=== PATIENT | male | born 1975 | race African-American/Black ===

== ENCOUNTER 2018-09-07 10:42 | Inpatient (IN) | payer BC, OTHER ==
[2018-09-07 11:14] VITALS: BMI 18.6
--- NOTE | 2018-09-07 12:27 | HP ---
CIWA Score - Admission Criteria [facility] Guidelines: Admission for Medically Managed Detox: Requires at least one of the followin. CIWA greater than 12 2. Seizures within the past 24 hours 3. Delirium tremens within the past 24 hours 4. Hallucinations within the past 24 hours 5. Acute intervention needed for co occurring medical disorder 6. Acute intervention needed for co occurring psychiatric disorder 7. Severe withdrawal that cannot be handled at a lower level of care (continued vomiting, continued diarrhea, abnormal vital signs) requiring intravenous medication and/or fluids 8. Admission ROS [facility] - [facility] Chief Complaint: REHAB SERVICES Allergies/Adverse Reactions: Allergies Allergy/AdvReac Type Severity Reaction Status Date / Time No Known Allergies Allergy Verified 09/07/18 12:56 History of Present Illness: 43 Y.O. MAN WITH AN EXTENSIVE ALCOHOL AND MARIJUANA DEPENDENCE IS SEEKING REHAB SERVICES. HE REPORTS HE LAST COMPLETED DETOX IN 2011 IN [facility]. Exam Limitations: Other (HARD OF HEARING) - Ebola screening Have you traveled outside of the country in the last 21 days: No Have you had contact with anyone from an Ebola affected area: No Have you been sick,other than usual withdrawal symptoms: No Do you have a fever: No - Review of Systems Constitutional: Night Sweats, Unintentional Wgt. Loss EENT: reports: Blurred Vision, Other (HARD OF HEARING) Respiratory: reports: No Symptoms reported Cardiac: reports: No Symptoms Reported GI: reports: No Symptoms Reported : reports: No Symptoms Reported Musculoskeletal: reports: No Symptoms Reported Neuro: reports: No Symptoms reported Endocrine: reports: No Symptoms Reported Hematology: reports: No Symptoms Reported Psychiatric: reports: Orientated x3, Depressed Other Systems: Reviewed and Negative Patient History - Patient Medical History Hx Anemia: No Hx Asthma: Yes Hx Chronic Obstructive Pulmonary Disease (COPD): No Hx Cancer: No Hx Cardiac Disorders: No Hx Congestive Heart Failure: No Hx Hypertension: No Hx Hypercholesterolemia: No Hx Pacemaker: No HX Cerebrovascular Accident: No Hx Seizures: No Hx Dementia: No Hx Diabetes: No Hx Gastrointestinal Disorders: No Hx Liver Disease: No Hx Genitourinary Disorders: No Hx Sexually Transmitted Disorders: Yes (HSVII) Hx Renal Disease (ESRD): No Hx Thyroid Disease: No Hx Human Immunodeficiency Virus (HIV): No Hx Hepatitis C: No Hx Depression: Yes Hx Suicide Attempt: No Hx Bipolar Disorder: No Hx Schizophrenia: No - Patient Surgical History Past Surgical History: No - PPD History Previous Implant?: Yes Documented Results: Negative w/o proof PPD to be Administered?: Yes - Reproductive History Patient is a Female of Child Bearing Age (11 -55 yrs old): No - Smoking Cessation Smoking history: Current every day smoker Have you smoked in the past 12 months: Yes Aproximately how many cigarettes per day: 10 Hx Chewing Tobacco Use: No Initiated information on smoking cessation: Yes 'Breaking Loose' booklet given: 09/07/18 - Substance & Tx. History Hx Alcohol Use: Yes Hx Substance Use: Yes Substance Use Type: Alcohol, Marijuana Hx Substance Use Treatment: Yes (DETOX: 2012) - Substances Abused Alcohol Route: Oral Frequency: 1-2 times per week Amount used: 1-2 CANS OF BEER Age of first use: 11 Date of Last Use: 09/04/18 Marijuana/Hashish Route: Inhalation Frequency: 3-6 times per week Amount used: 1 JOINT Age of first use: 11 Date of Last Use: 09/04/18 Family Disease History - Family Disease History Family History: Denies Admission Physical Exam [facility] - Vital Signs Vital Signs: Vital Signs - 24 hr 09/07/18 11:12 Temperature 97.3 F L Pulse Rate 82 Respiratory 16 Rate Blood Pressure 116/63 - Physical General Appearance: Yes: No Apparent Distress HEENTM: Yes: Normocephalic, Normal Voice, Other (HARD OF HEARING) Respiratory: Yes: Chest Non-Tender, Lungs Clear, Normal Breath Sounds, No Respiratory Distress, No Accessory Muscle Use Neck: Yes: Within Normal Limits Breast: Yes: Breast Exam Deferred Cardiology: Yes: Regular Rhythm, Regular Rate Abdominal: Yes: Normal Bowel Sounds, Non Tender, Flat Genitourinary: Yes: Other (NO COMPLAINTS REPORTED) Musculoskeletal: Yes: full range of Motion, Gait Steady, Pelvis Stable Extremities: Yes: Normal Capillary Refill, Normal Range of Motion, Non-Tender Neurological: Yes: Alert Integumentary: Yes: Dry, Warm Lymphatic: Yes: Within Normal Limits - Diagnostic (1) Alcohol dependence Current Visit: Yes Status: Chronic (2) Asthma Current Visit: Yes Status: Chronic (3) [place] (hard of hearing) Current Visit: Yes Status: Chronic (4) Nicotine dependence Current Visit: Yes Status: Chronic (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 (6) Marijuana dependence Current Visit: Yes Status: Chronic Cleared for Admission [facility] - Detox or Rehab [facility] Level of Care: Observation Bed Detox Regimen/Protocol: Not Applicable Claeared for Rehab Admission: Yes [facility] Breath Alcohol Content Breath Alcohol Content: 0 Urine Drug Screen - Results Drug Screen Negative: No Urine Drug Screen Results: THC-Marijuana Inpatient Rehab Admission - Initial Determination Are CD services needed?: Yes Free of communicable disease: No Not in need of hospitalization: Yes - Rehab Admission Criteria Previous failed treatment: Yes Poor recovery environment: Yes Comorbidities: Yes Lacks judgement: Yes Patient is meeting Inpatient Rehab admission criteria:: Yes
[2018-09-07] MEDS ORDERED: P-EPHED 60MG/TRIPROLIDI 2.5MG TABLET PO PRN (12:48)
[2018-09-07] MEDS ORDERED: guaiFENesin/D-METHORPHAN HB 10 ML UNIT-DOSE CUPS PO PRN (12:48)
[2018-09-07] MEDS ORDERED: MENTHOL/PHENOL 1 EACH UD MM PRN (12:48)
[2018-09-07] MEDS ORDERED: hydrOXYzine PAMOATE 50 MG CAPSULE (FP) PO PRN (12:48)
[2018-09-07] MEDS ORDERED: LOPERAMIDE HCL 2 MG CAPSULE PO PRN (12:48)
[2018-09-07] MEDS ORDERED: IBUPROFEN 400 MG TABLET (FP) PO PRN (12:48)
[2018-09-07] MEDS ORDERED: MAGNESIUM CITRATE 300 ML BOTTLE PO PRN (12:48)
[2018-09-07] MEDS ORDERED: MAGNESIUM HYDROX 2400MG/30ML ORAL SUSPENSION 30 ML CUP PO PRN (12:48)
[2018-09-07] MEDS ORDERED: ACETAMINOPHEN 325 MG TABLET (FP) PO PRN (12:48)
[2018-09-07] MEDS ORDERED: MAG HYDROX/AL HYDROX/SIMETH 30 ML UNIT-DOSE CUP PO PRN (12:48)
[2018-09-07 15:36] LABS: HEMATOCRIT 41.4 % (32.4-45.2); HEMOGLOBIN 14.1 GM/dL (10.7-15.3); MCHC 33.9 g/dl (32.0-36.0); MEAN CELL VOLUME 91.5 fl (80-96); MEAN PLT VOLUME 7.5 fl (7.5-11.1); PLATELET COUNT 296 K/MM3 (134-434); RBC 4.53 M/mm3 (3.60-5.2)
[2018-09-07 15:49] LABS: ALBUMIN 3.8 g/dl (3.4-5.0); ALK PHOS 78 U/L (45-117); ANION GAP 5 MMOL/L (8-16); BILIRUBIN,TOTAL 0.2 mg/dL (0.2-1); BLOOD UREA NITROGEN 19 mg/dL (7-18); CALCIUM 8.7 mg/dL (8.5-10.1); CHLORIDE 103 mmol/L (98-107); CO2 30 mmol/L (21-32); CREATININE 1.2 mg/dL (0.55-1.3); GLUCOSE,RANDOM 116 mg/dL (74-106); POTASSIUM 4.3 mmol/L (3.5-5.1); SGOT/AST 17 U/L (15-37); SGPT/ALT 22 U/L (13-61); SODIUM 138 mmol/L (136-145); TOT PROT 6.9 g/dl (6.4-8.2)
[2018-09-07] MEDS ORDERED: TUBERCULIN PPD 5 TU/0.1ML VIAL ID ONE (16:52)
[2018-09-07] MEDS: NICOTINE POLACRILEX 2 MG GUM BC PRN (16:56)
[2018-09-07 17:14] LABS: URINE APPEARANCE CLEAR; URINE BILIRUBIN NEGATIVE (<2.0 mg/dL); URINE COLOR YELLOW; URINE GLUCOSE (UA) NEGATIVE (NEGATIVE); URINE KETONE NEGATIVE (NEGATIVE); URINE LEUK ESTERASE NEGATIVE (NEGATIVE); URINE NITRITE NEGATIVE (NEGATIVE); URINE PROTEIN NEGATIVE (NEGATIVE); URINE UROBILINOGEN NEGATIVE mg/dL (0.2-1.0)
[2018-09-07] MEDS ORDERED: MELATONIN 5 MG TABLETS PO PRN (22:00)
[2018-09-07] MEDS: THIAMINE HCL 100 MG TABLET (FP) PO SCH (22:11)
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
[2018-09-08] MEDS: NICOTINE POLACRILEX 2 MG GUM BC PRN ×3 (06:12→19:26)
--- NOTE | 2018-09-08 09:53 | PN ---
[facility] Progress Note Note: PATIENT SEEN HE IS NEW ADMISSION TO REHAB UNIT FOR ETOH AND THC DEPENDENCE. PATIENT IS TELIDA AND HAS H/O ASTHMA AND TOBACCO USE. PATIENT STATES HE LIVES IN [facility] AND WILL BE IN REHAB FOR 2 WEEKS. 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 PATIENT REPORTS FEELING WELL. DENIES SHAKES, ANXIETY, N/V/D AND SWEATING. Vital Signs Temperature 98 F 09/08/18 07:01 Pulse Rate 60 09/08/18 07:01 Respiratory Rate 18 09/08/18 07:01 Blood Pressure 113/87 09/08/18 07:01 O2 Sat by Pulse Oximetry (%) Laboratory Tests 09/07/18 09/07/18 09/07/18 13:10 13:10 13:10 WBC 6.0 RBC 4.53 Hgb 14.1 Hct 41.4 MCV 91.5 MCH 31.0 MCHC 33.9 RDW 14.0 Plt Count 296 MPV 7.5 Sodium 138 Potassium 4.3 Chloride 103 Carbon Dioxide 30 Anion Gap 5 L BUN 19 H Creatinine 1.2 Creat Clearance w eGFR 49.51 Random Glucose 116 H Calcium 8.7 Total Bilirubin 0.2 AST 17 ALT 22 Alkaline Phosphatase 78 Total Protein 6.9 Albumin 3.8 Urine Color Urine Appearance Urine pH Ur Specific [place] Urine Protein Urine Glucose (UA) Urine Ketones Urine Blood Urine Nitrite Urine Bilirubin Urine Urobilinogen Ur Leukocyte Esterase RPR Titer Nonreactive 09/07/18 15:29 WBC RBC Hgb Hct MCV MCH MCHC RDW Plt Count MPV Sodium Potassium Chloride Carbon Dioxide Anion Gap BUN Creatinine Creat Clearance w eGFR Random Glucose Calcium Total Bilirubin AST ALT Alkaline Phosphatase Total Protein Albumin Urine Color Yellow Urine Appearance Clear Urine pH 7.0 Ur Specific [place] 1.020 Urine Protein Negative Urine Glucose (UA) Negative Urine Ketones Negative Urine Blood Negative Urine Nitrite Negative Urine Bilirubin Negative Urine Urobilinogen Negative Ur Leukocyte Esterase Negative RPR Titer PE: ALERT AND ORIENTED X 3 SKIN WARM AND DRY CAR S1S2 RESP CTA BL GI SOFT, BS+, NT EXT FULL ROM, NO TREMORS OR EDEMA +TELIDA, ABLE TO LIP READ A/P ETOH/THC DEPENDENCE RENAL INSUFFICIENCY WILL CONTINUE REHAB SERVICES ENCOURAGE ORAL FLUIDS REPEAT BMP ON 09/09/17 CONTINUE TO MONITOR
[2018-09-08] MEDS: PRENATAL VITAMINS W/ FOLIC ACID TABLET (FP) PO SCH (10:04)
[2018-09-08] MEDS: NICOTINE 21 MG/24 HOURS TOPICAL PATCH TD SCH (10:04)
--- NOTE | 2018-09-08 18:19 | EKG ---
Test Reason : Blood Pressure : / mmHG Vent. Rate : 055 BPM Atrial Rate : 055 BPM P-R Int : 164 ms QRS Dur : 088 ms QT Int : 436 ms P-R-T Axes : 029 071 077 degrees QTc Int : 417 ms SINUS BRADYCARDIA OTHERWISE NORMAL ECG NO PREVIOUS ECGS AVAILABLE Confirmed by MD JOAQUÍN, ISAI ([id number]) on 09/08/2018 6:19:10 PM Referred By: Confirmed By:ISAI YANES MD
[2018-09-08] MEDS: THIAMINE HCL 100 MG TABLET (FP) PO SCH (21:52)
[2018-09-09 06:54] VITALS: BP 114/67; PULSE 54; TEMP 98.1
[2018-09-09] MEDS: PRENATAL VITAMINS W/ FOLIC ACID TABLET (FP) PO SCH (10:01)
[2018-09-09] MEDS: NICOTINE 21 MG/24 HOURS TOPICAL PATCH TD SCH (10:01)
[2018-09-09] MEDS: NICOTINE POLACRILEX 2 MG GUM BC PRN (10:02)
--- NOTE | 2018-09-09 11:44 | PN ---
[facility] Progress Note Note: Patient is discharged today because his admission to inpatient rehab in this facility is not approved by his medical insurance coverage.
[2018-09-09] MEDS ORDERED: PT OWN MED DRAWER 7, Y5N ONE (13:10)
== END 2018-09-09 13:15 | disposition home or self-care (01) | DRG 895 ==
LOC: YASAS 10:42 → Y3W 13:24 → EDSEX 13:24
PROVIDERS: ADMIT Psychiatry & Neurology Psychiatry; ATTEND Psychiatry & Neurology Psychiatry
PROC: HZ42ZZZ Group Counseling for Substance Abuse Treatment, Cognitive-Behavioral (ICD-10-PCS; principal; 2018-09-07)
DX: F10.230 Alcohol dependence with withdrawal, uncomplicated (principal); F19.282 Other psychoactive substance dependence with psychoactive substance-induced sleep disorder; F12.20 Cannabis dependence, uncomplicated; F17.213 Nicotine dependence, cigarettes, with withdrawal; J45.909 Unspecified asthma, uncomplicated; H91.90 Unspecified hearing loss, unspecified ear; N18.9 Chronic kidney disease, unspecified; Z86.19 Personal history of other infectious and parasitic diseases; Z87.438 Personal history of other diseases of male genital organs
CPT/HCPCS: 36415; 80053; 81003; 85027; 86593; 93005; 93010

== ENCOUNTER 2022-07-10 10:11 | Inpatient (IN) | payer OTHER ==
[2022-07-10 10:55] VITALS: BMI 19.3
[2022-07-10] MEDS ORDERED: METHOCARBAMOL 500 MG TABLET PO PRN (11:39)
[2022-07-10] MEDS ORDERED: BISMUTH SUBSALICYLATE 262 MG/15 ML BTL PO PRN (11:39)
[2022-07-10] MEDS ORDERED: DICYCLOMINE HCL 10 MG CAPSULE PO PRN (11:39)
[2022-07-10] MEDS ORDERED: chlordiazePOXIDE HCL 25 MG CAPSULE PO PRN (11:39)
[2022-07-10] MEDS ORDERED: ONDANSETRON *ODT* 4 MG TABLET SL PRN (11:39)
[2022-07-10] MEDS ORDERED: ACETAMINOPHEN 325 MG TABLET (FP) PO PRN ×2 (11:39)
[2022-07-10] MEDS ORDERED: IBUPROFEN 400 MG TABLET (FP) PO PRN (11:39)
[2022-07-10] MEDS ORDERED: POLYETHYLENE GLYCOL (HEALTHYLAX) 3350 17 GM PACKET PO PRN (11:39)
[2022-07-10] MEDS ORDERED: LOPERAMIDE HCL 2 MG CAPSULE PO PRN (11:39)
[2022-07-10] MEDS ORDERED: hydrOXYzine PAMOATE 25 MG CAPSULE (FP) PO PRN (11:39)
[2022-07-10] MEDS ORDERED: MAG HYDROX/AL HYDROX/SIMETH -MYLANTA- ORAL SUSPENSION PO PRN (11:39)
[2022-07-10] MEDS ORDERED: BENZOCAINE/MENTHOL (CHLORASEPTIC ) LOZENGE MM PRN (11:39)
[2022-07-10] MEDS ORDERED: IBUPROFEN 600 MG TABLET (FP) PO PRN (11:39)
[2022-07-10] MEDS ORDERED: MAGNESIUM HYDROX 2400MG/30ML ORAL SUSPENSION 30 ML CUP PO PRN (11:39)
[2022-07-10] MEDS ORDERED: NICOTINE 10 MG CARTRIDGE (INHALER) IH PRN (11:39)
[2022-07-10] MEDS ORDERED: NALOXONE HCL (KLOXXADO) 8 MG SPRAY NS PRN (11:39)
[2022-07-10] MEDS ORDERED: ALBUTEROL SO4 HFA INHALER IH PRN (11:44)
[2022-07-10] MEDS ORDERED: chlordiazePOXIDE HCL 25 MG CAPSULE ONE (12:38)
[2022-07-10] MEDS: chlordiazePOXIDE HCL 25 MG CAPSULE PO SCH ×3 (12:41→22:14)
[2022-07-10] MEDS: PRENATAL VITAMINS W/ FOLIC ACID TABLET (FP) PO SCH (13:14)
[2022-07-10 13:35] LABS: HEMATOCRIT 40.4 % (35.4-49); HEMOGLOBIN 13.4 GM/dL (11.7-16.9); MCH 30.5 pg (25.7-33.7); MCHC 33.3 g/dl (32.0-35.9); MEAN CELL VOLUME 91.6 fl (80-96); MEAN PLT VOLUME 7.1 fl (7.5-11.1); PLATELET COUNT 292 10^3/uL (134-434); RBC 4.41 M/mm3 (4.00-5.60); RDW 14.9 % (11.9-15.9); WHITE BLOOD COUNT 5.2 K/mm3 (4.0-10.0)
[2022-07-10 13:49] LABS: ALBUMIN 3.4 g/dl (3.4-5.0); BLOOD UREA NITROGEN 9.9 mg/dL (7-18)
[2022-07-10 13:54] LABS: BILIRUBIN,TOTAL 0.2 mg/dL (0.2-1); TOT PROT 6.8 g/dl (6.4-8.2)
[2022-07-10 14:09] LABS: SYPHILIS W/ RPR CONF NON-REACTIVE (NONREACTIVE)
[2022-07-10] MEDS: NICOTINE POLACRILEX 2 MG GUM BUC PRN ×2 (16:55→20:40)
[2022-07-10 18:44] LABS: HIV INTERPRETATION NEGATIVE (NEGATIVE)
[2022-07-10] MEDS: MELATONIN 5 MG TABLETS PO SCH (22:14)
[2022-07-10] MEDS: THIAMINE HCL 100 MG TABLET (FP) PO SCH (22:14)
[2022-07-11] MEDS: chlordiazePOXIDE HCL 25 MG CAPSULE PO SCH ×4 (05:12→22:13)
[2022-07-11] MEDS ORDERED: NICOTINE 14 MG/24 HOURS TOPICAL PATCH TD SCH (10:00)
[2022-07-11] MEDS: PRENATAL VITAMINS W/ FOLIC ACID TABLET (FP) PO SCH (10:47)
[2022-07-11] MEDS: THIAMINE HCL 100 MG TABLET (FP) PO SCH (22:13)
[2022-07-11] MEDS: LACTULOSE 20 GM/30 ML UDC (FOR ORAL USE ONLY) PO SCH (22:13)
[2022-07-11] MEDS: MELATONIN 5 MG TABLETS PO SCH (22:13)
[2022-07-12] MEDS: chlordiazePOXIDE HCL 25 MG CAPSULE PO SCH ×2 (05:37→10:25)
[2022-07-12] MEDS: NICOTINE POLACRILEX 2 MG GUM BUC PRN ×2 (05:38→08:26)
[2022-07-12 09:34] VITALS: BP 101/66; PULSE 72; RESP 16; TEMP 98
[2022-07-12] MEDS: PRENATAL VITAMINS W/ FOLIC ACID TABLET (FP) PO SCH (10:25)
[2022-07-12] MEDS: LACTULOSE 20 GM/30 ML UDC (FOR ORAL USE ONLY) PO SCH (10:26)
[2022-07-13] MEDS ORDERED: chlordiazePOXIDE HCL 10 MG CAPSULE PO PRN
[2022-07-13] MEDS ORDERED: chlordiazePOXIDE HCL 10 MG CAPSULE PO SCH (05:00)
[2022-07-14] MEDS ORDERED: chlordiazePOXIDE HCL 10 MG CAPSULE PO SCH (05:00)
[2022-07-15] MEDS ORDERED: chlordiazePOXIDE HCL 10 MG CAPSULE PO ONE (05:00)
== END 2022-07-12 15:23 | disposition left against medical advice (07) | DRG 894 ==
LOC: YASAS 10:11 → Y3N 12:36
PROVIDERS: ADMIT Allergy & Immunology; ATTEND Surgery
PROC: HZ2ZZZZ Detoxification Services for Substance Abuse Treatment (ICD-10-PCS; principal; 2022-07-10)
DX: F10.230 Alcohol dependence with withdrawal, uncomplicated (principal); F19.282 Other psychoactive substance dependence with psychoactive substance-induced sleep disorder; F12.20 Cannabis dependence, uncomplicated; F17.213 Nicotine dependence, cigarettes, with withdrawal; F41.8 Other specified anxiety disorders; H91.93 Unspecified hearing loss, bilateral; J45.909 Unspecified asthma, uncomplicated; Z86.19 Personal history of other infectious and parasitic diseases; Z91.013 Allergy to seafood
CPT/HCPCS: 36415; 80053; 82140; 85027; 86780; 87389; C9803-CS; U0003; U0005

== ENCOUNTER 2023-12-11 13:14 | Inpatient (IN) | payer OTHER ==
[2023-12-11 14:53] VITALS: BMI 19.2
[2023-12-11] MEDS ORDERED: POLYETHYLENE GLYCOL (HEALTHYLAX) 3350 17 GM PACKET PO PRN (16:38)
[2023-12-11] MEDS ORDERED: IBUPROFEN 600 MG TABLET (FP) PO PRN (16:38)
[2023-12-11] MEDS ORDERED: ONDANSETRON *ODT* 4 MG TABLET SL PRN (16:38)
[2023-12-11] MEDS ORDERED: BENZOCAINE/MENTHOL (CHLORASEPTIC ) LOZENGE MM PRN (16:38)
[2023-12-11] MEDS ORDERED: BENZONATATE 200 MG CAPSULE PO PRN (16:38)
[2023-12-11] MEDS ORDERED: BISMUTH SUBSALICYLATE 524 MG/30 ML PO PRN (16:38)
[2023-12-11] MEDS ORDERED: hydrOXYzine PAMOATE 25 MG CAPSULE (FP) PO PRN (16:38)
[2023-12-11] MEDS ORDERED: NALOXONE HCL 0.4 MG/ML VIAL IM PRN (16:38)
[2023-12-11] MEDS ORDERED: MAG HYDROX/AL HYDROX/SIMETH 30 ML UNIT-DOSE CUP PO PRN (16:38)
[2023-12-11] MEDS ORDERED: DICYCLOMINE HCL 10 MG CAPSULE PO PRN (16:38)
[2023-12-11] MEDS ORDERED: MAGNESIUM HYDROX 2400MG/30ML ORAL SUSPENSION 30 ML CUP PO PRN (16:38)
[2023-12-11] MEDS ORDERED: LOPERAMIDE HCL 2 MG CAPSULE PO PRN (16:38)
[2023-12-11] MEDS ORDERED: IBUPROFEN 400 MG TABLET (FP) PO PRN (16:38)
[2023-12-11] MEDS ORDERED: NALOXONE HCL (KLOXXADO) 8 MG SPRAY NS PRN (16:38)
[2023-12-11] MEDS ORDERED: ACETAMINOPHEN 325 MG TABLET (FP) PO PRN (16:38)
[2023-12-11] MEDS ORDERED: guaiFENesin 600 MG TABLET.ER (FP) PO PRN (16:38)
[2023-12-11] MEDS: NICOTINE POLACRILEX 2 MG GUM BUC PRN (19:21)
[2023-12-11] MEDS: THIAMINE HCL 100 MG TABLET (FP) PO SCH (22:30)
[2023-12-11] MEDS: MELATONIN 5 MG TABLETS PO SCH (22:30)
[2023-12-11] MEDS: METHOCARBAMOL 500 MG TABLET PO PRN (22:31)
[2023-12-11] MEDS: diazePAM 5 MG TABLET PO SCH (22:31)
[2023-12-12] MEDS: PRENATAL VITAMINS W/ FOLIC ACID TABLET (FP) PO SCH (10:22)
[2023-12-12] MEDS ORDERED: ALBUTEROL SO4 HFA INHALER IH PRN (10:50)
[2023-12-12 11:48] LABS: HEMATOCRIT 44.8 % (35.4-49); HEMOGLOBIN 14.5 GM/dL (11.7-16.9); MCH 30.3 pg (25.7-33.7); MCHC 32.4 g/dl (32.0-35.9); MEAN CELL VOLUME 93.6 fl (80-96); MEAN PLT VOLUME 6.9 fl (7.5-11.1); PLATELET COUNT 307 10^3/uL (134-434); RBC 4.79 M/mm3 (4.00-5.60); RDW 14.4 % (11.9-15.9); WHITE BLOOD COUNT 5.7 K/mm3 (4.0-10.0)
[2023-12-12 11:54] LABS: CHLORIDE 100 mmol/L (98-107); POTASSIUM 4.4 mmol/L (3.5-5.1); SODIUM 134 mmol/L (136-145)
[2023-12-12 12:07] LABS: ANION GAP 3 mmol/L (4-13); BLOOD UREA NITROGEN 11.7 mg/dL (7-18); CALCIUM 9.3 mg/dL (8.5-10.1); CO2 31 mmol/L (21-32)
[2023-12-12 12:08] LABS: ALBUMIN 3.5 g/dl (3.4-5.0); GLUCOSE,RANDOM 201 mg/dL (74-106)
[2023-12-12 12:09] LABS: CREATININE 1.2 mg/dL (0.55-1.3); SGPT/ALT 30 U/L (13-61)
[2023-12-12 12:10] LABS: TOT PROT 6.8 g/dl (6.4-8.2)
[2023-12-12 12:11] LABS: ALK PHOS 84 U/L (45-117)
[2023-12-12 12:13] LABS: SGOT/AST 34 U/L (15-37)
[2023-12-12 12:51] LABS: HIV INTERPRETATION NEGATIVE (NEGATIVE)
[2023-12-12 20:40] VITALS: RESP 16
[2023-12-13] MEDS: diazePAM 5 MG TABLET PO SCH (06:44)
[2023-12-13 10:00] VITALS: BP 108/75; PULSE 67; TEMP 97.8
[2023-12-13] MEDS: diazePAM 5 MG TABLET PO PRN (10:29)
[2023-12-14] MEDS ORDERED: diazePAM 5 MG TABLET PO SCH (06:00)
[2023-12-15] MEDS ORDERED: diazePAM 5 MG TABLET PO ONE (06:00)
== END 2023-12-13 11:55 | disposition left against medical advice (07) | DRG 894 ==
LOC: YASAS 13:14 → Y3N 17:22
PROVIDERS: ADMIT Allergy & Immunology; ATTEND Surgery
PROC: HZ2ZZZZ Detoxification Services for Substance Abuse Treatment (ICD-10-PCS; principal; 2023-12-11)
DX: F10.230 Alcohol dependence with withdrawal, uncomplicated (principal); F12.20 Cannabis dependence, uncomplicated; F17.210 Nicotine dependence, cigarettes, uncomplicated; F41.8 Other specified anxiety disorders; J45.40 Moderate persistent asthma, uncomplicated; H91.93 Unspecified hearing loss, bilateral; Z86.19 Personal history of other infectious and parasitic diseases
CPT/HCPCS: 36415; 80053; 80307; 85027; 86780; 87389; 93005; 93010

== ENCOUNTER 2024-10-19 14:41 | Inpatient (IN) | payer OTHER ==
[2024-10-19 15:33] VITALS: BMI 19.1
[2024-10-19] MEDS ORDERED: IBUPROFEN 600 MG TABLET (FP) PO PRN ×2 (15:49→16:08)
[2024-10-19] MEDS ORDERED: METHOCARBAMOL 500 MG TABLET PO PRN (15:49)
[2024-10-19] MEDS ORDERED: NALOXONE (NARCAN) HCL 4 MG/0.1 ML SPRAY NS PRN ×2 (15:49→16:08)
[2024-10-19] MEDS ORDERED: BISMUTH SUBSALICYLATE 524 MG/30 ML PO PRN ×2 (15:49→16:08)
[2024-10-19] MEDS ORDERED: DICYCLOMINE HCL 10 MG CAPSULE PO PRN ×2 (15:49→16:08)
[2024-10-19] MEDS ORDERED: BENZOCAINE/MENTHOL (CHLORASEPTIC ) LOZENGE MM PRN ×2 (15:49→16:08)
[2024-10-19] MEDS ORDERED: MAGNESIUM HYDROX 2400MG/30ML ORAL SUSPENSION 30 ML CUP PO PRN ×2 (15:49→16:08)
[2024-10-19] MEDS ORDERED: POLYETHYLENE GLYCOL (HEALTHYLAX) 3350 17 GM PACKET PO PRN ×2 (15:49→16:08)
[2024-10-19] MEDS ORDERED: chlordiazePOXIDE HCL 25 MG CAPSULE PO PRN (15:49)
[2024-10-19] MEDS ORDERED: MAG HYDROX/AL HYDROX/SIMETH 30 ML UNIT-DOSE CUP PO PRN ×2 (15:49→16:08)
[2024-10-19] MEDS ORDERED: ONDANSETRON *ODT* 4 MG TABLET SL PRN ×2 (15:49→16:08)
[2024-10-19] MEDS ORDERED: guaiFENesin 600 MG TABLET.ER (FP) PO PRN ×2 (15:49→16:08)
[2024-10-19] MEDS ORDERED: ACETAMINOPHEN 325 MG TABLET (FP) PO PRN ×2 (15:49→16:08)
[2024-10-19] MEDS ORDERED: BENZONATATE 200 MG CAPSULE PO PRN ×2 (15:49→16:08)
[2024-10-19] MEDS ORDERED: IBUPROFEN 400 MG TABLET (FP) PO PRN ×2 (15:49→16:08)
[2024-10-19] MEDS ORDERED: LOPERAMIDE HCL 2 MG CAPSULE PO PRN ×2 (15:49→16:08)
[2024-10-19] MEDS ORDERED: hydrOXYzine PAMOATE 25 MG CAPSULE (FP) PO PRN (15:49)
[2024-10-19] MEDS ORDERED: ALBUTEROL SO4 HFA INHALER IH PRN (15:57)
[2024-10-19] MEDS ORDERED: chlordiazePOXIDE HCL 25 MG CAPSULE PO SCH (17:00)
[2024-10-19] MEDS: hydrOXYzine PAMOATE 25 MG CAPSULE (FP) PO PRN (19:11)
[2024-10-19] MEDS ORDERED: NICOTINE POLACRILEX 2 MG GUM BUC PRN (19:17)
[2024-10-19] MEDS: NALTREXONE HCL 50 MG TABLET PO ONE ×2 (19:21)
[2024-10-19] MEDS ORDERED: MELATONIN 5 MG TABLETS PO SCH (22:00)
[2024-10-19] MEDS ORDERED: THIAMINE 100 MG TABLET PO SCH (22:00)
[2024-10-19] MEDS: THIAMINE 100 MG TABLET PO SCH (22:10)
[2024-10-19] MEDS: MELATONIN 5 MG TABLETS PO SCH (22:10)
[2024-10-20] MEDS ORDERED: PRENATAL VITAMINS W/ FOLIC ACID TABLET (FP) PO SCH (10:00)
[2024-10-20] MEDS: NALTREXONE HCL 50 MG TABLET PO SCH (10:43)
[2024-10-20] MEDS: PRENATAL VITAMINS W/ FOLIC ACID TABLET (FP) PO SCH (10:43)
[2024-10-20] MEDS: METHOCARBAMOL 500 MG TABLET PO PRN (10:43)
[2024-10-20] MEDS: NICOTINE 7 MG/24 HOURS TOPICAL PATCH TD SCH (10:45)
[2024-10-20 12:26] LABS: HEMOGLOBIN 13.7 GM/dL (11.7-16.9); MCH 30.5 pg (25.7-33.7); MCHC 32.7 g/dl (32.0-35.9); MEAN CELL VOLUME 93.5 fl (80-96); MEAN PLT VOLUME 7.1 fl (7.5-11.1); PLATELET COUNT 313 10^3/uL (134-434); RDW 14.4 % (11.9-15.9); WHITE BLOOD COUNT 4.5 K/mm3 (4.0-10.0)
[2024-10-20 12:31] LABS: CHLORIDE 103 mmol/L (98-107); POTASSIUM 4.3 mmol/L (3.5-5.1); SODIUM 139 mmol/L (136-145)
[2024-10-20 12:34] LABS: ALBUMIN 3.5 g/dl (3.4-5.0); ANION GAP 6 mmol/L (4-13); CALCIUM 9.5 mg/dL (8.5-10.1); CO2 30 mmol/L (21-32)
[2024-10-20 12:35] LABS: GLUCOSE,RANDOM 77 mg/dL (74-106)
[2024-10-20 12:37] LABS: SGOT/AST 23 U/L (15-37); SGPT/ALT 17 U/L (13-61)
[2024-10-20 12:39] LABS: BILIRUBIN,TOTAL 0.5 mg/dL (0.2-1); TOT PROT 6.6 g/dl (6.4-8.2)
[2024-10-20 12:40] LABS: ALK PHOS 77 U/L (45-117)
[2024-10-20] MEDS: hydrOXYzine PAMOATE 25 MG CAPSULE (FP) PO PRN (16:50)
[2024-10-20 20:46] VITALS: RESP 16
[2024-10-20] MEDS: MELATONIN 5 MG TABLETS PO SCH (22:03)
[2024-10-21] MEDS ORDERED: chlordiazePOXIDE HCL 25 MG CAPSULE PO SCH (05:00)
[2024-10-21 08:53] VITALS: BP 115/75; PULSE 55; TEMP 98
[2024-10-22] MEDS ORDERED: chlordiazePOXIDE HCL 10 MG CAPSULE PO PRN
[2024-10-22] MEDS ORDERED: chlordiazePOXIDE HCL 10 MG CAPSULE PO SCH (05:00)
[2024-10-23] MEDS ORDERED: chlordiazePOXIDE HCL 10 MG CAPSULE PO SCH (05:00)
[2024-10-24] MEDS ORDERED: chlordiazePOXIDE HCL 10 MG CAPSULE PO ONE (05:00)
== END 2024-10-21 09:52 | disposition home or self-care (01) | DRG 897 ==
LOC: YASAS 14:41 → Y6N 18:06
PROVIDERS: ADMIT Allergy & Immunology; ATTEND Allergy & Immunology
PROC: HZ2ZZZZ Detoxification Services for Substance Abuse Treatment (ICD-10-PCS; principal; 2024-10-19)
DX: F10.230 Alcohol dependence with withdrawal, uncomplicated (principal); F14.20 Cocaine dependence, uncomplicated; F19.280 Other psychoactive substance dependence with psychoactive substance-induced anxiety disorder; F12.20 Cannabis dependence, uncomplicated; F17.210 Nicotine dependence, cigarettes, uncomplicated; H91.93 Unspecified hearing loss, bilateral; J45.30 Mild persistent asthma, uncomplicated; Z97.4 Presence of external hearing-aid
CPT/HCPCS: 36415; 80053; 80305; 80307; 85027; 86780; 93005; 93010